=== PATIENT | female | born 1950 | race Caucasian/White ===

== ENCOUNTER 2016-04-27 17:25 | Inpatient (IN) | payer OTHER ==
[~2016-04-27] VITALS: Ht 165.1 cm; Wt 112.5 kg
[~2016-04-27 17:25] MED LIST: ASPIRIN EC325 MG PO; HYDROCODON-ACE1 EAC7 PO; IRON325 M1 PO; MICARDIS40 MG PO; MOTRIN400 MG PO; MUCINEX D ER T1 EACH PO; NEXIUM40 MG PO; SINGULAIR10 MG PO; XOPENEX HF200 INHALA IH
[2016-04-27 18:21] LABS: HEMATOCRIT 38.7 % (36.0-46.0); MCH 28.1 PG (29.0-34.0); MCHC 33.6 G/DL (30.0-36.0); MCV 83.6 FL (83-99); MEAN PLAT.VOLUME 9.9 uM^3 (9.5-12.4); PLATELET COUNT 367 K/uL (156-360); RBC DIS.WIDTH-CV 13.6 % (11.8-14.6); RBC DIS.WIDTH-SD 40.9 % (39-53); RED BLOOD COUNT 4.63 M/uL (3.80-5.20); WHITE BLOOD COUNT 20.2 K/uL (4.1-10.2)
[2016-04-27 18:32] LABS: CHLORIDE 101 mEq/L (99-109); POTASSIUM 3.6 mEq/L (3.7-5.4); SODIUM 139 mEq/L (136-147)
[2016-04-27 18:34] LABS: GLUCOSE 167 mg/dL (70-99)
[2016-04-27 18:35] LABS: ANION GAP 16 MEQ/L (2-14)
[2016-04-27 18:37] LABS: GFR ESTIMATE (CALCULATED) > 59 mL/min/
[2016-04-27 18:38] LABS: UREA NITROGEN (BUN) 16 mg/dL (9-23)
[2016-04-27 18:39] LABS: PROTHROMBIN TIME 10.4 (9.2-11.2); PTT 24.9 (25-32)
[2016-04-27] MEDS ORDERED: BREO ELLIPTA I1 EACH IH (18:47)
[2016-04-27] MEDS ORDERED: DELTASONE20 M1 PO (18:49)
[2016-04-27] MEDS ORDERED: GLUCOPHAGE1000 MG PO (18:49)
[2016-04-27] MEDS ORDERED: HYZAAR 100-11 TABLET PO (18:50)
[2016-04-27] MEDS ORDERED: POLICOSANOL-GA1 EACH PO (18:50)
[2016-04-27] MEDS ORDERED: PROVENTIL,2.5 MG/3 M IH (18:51)
[2016-04-27] MEDS ORDERED: VITAMIN D2000 UNIT PO (18:51)
[2016-04-27] MEDS ORDERED: LOTRISONE15 GM TP (18:52)
[2016-04-27 21:13] LABS: Estimated Average Glucose 163 mg/dL (70-123); HEMOGLOBIN A1c (GLYCOHEMOGLOB) 7.3 % HGB (Below 5.7)
[2016-04-27 21:17] LABS: HDL CHOLESTEROL 43 MG/DL (Desirable>=50); LDL CHOLESTEROL 77 mg/dL (Desirable<100); NON-HDL CHOLESTEROL 120 mg/dL (Desirable<160); SAMPLE HEMOLYSIS CHECK 0; SAMPLE ICTERIC CHECK 0; SAMPLE LIPEMIA CHECK 0; TOTAL CHOLESTEROL 163 mg/dL (Desirable<200); TRIGLYCERIDES 213 MG/DL (Normal: <150)
[2016-04-28 04:00] VITALS: BP 170/83
[2016-04-28 07:35] LABS: HEMATOCRIT 39.6 % (36.0-46.0); MCH 28.4 PG (29.0-34.0); MCHC 32.6 G/DL (30.0-36.0); MEAN PLAT.VOLUME 10.3 uM^3 (9.5-12.4); PLATELET COUNT 314 K/uL (156-360); RBC DIS.WIDTH-CV 13.8 % (11.8-14.6); RBC DIS.WIDTH-SD 43.3 % (39-53); RED BLOOD COUNT 4.55 M/uL (3.80-5.20)
[2016-04-28 07:36] LABS: ALKALINE PHOSPHATASE 76 IU/L (3-129); ANION GAP 11 MEQ/L (2-14); CHLORIDE 102 MEQ/L (99-109); GFR ESTIMATE (CALCULATED) > 59 mL/min/; GLUCOSE 149 mg/dL (70-99); POTASSIUM 3.9 MEQ/L (3.7-5.4); SAMPLE HEMOLYSIS CHECK 0; SAMPLE ICTERIC CHECK 0; SAMPLE LIPEMIA CHECK 0; SODIUM 141 MEQ/L (136-147); TOTAL BILIRUBIN 0.7 MG/DL (0.0-1.0); UREA NITROGEN (BUN) 14 mg/dL (9-23)
[2016-04-28 07:38] LABS: WHITE BLOOD COUNT 13.9 K/uL (4.1-10.2)
[2016-04-28 08:28] LABS: ABS NEUTROPHIL COUNT 9.19; ANISOCYTOSIS OCC; EOSINOPHIL ABS CT 0.42; PLAT.SUFFICIENCY ADEQUATE
[2016-04-28 12:30] VITALS: BP 156/79
[2016-04-28 20:48] VITALS: BP 1140/70; BP 140/70
[2016-04-28 23:29] VITALS: BP 160/70
[2016-04-29 04:00] VITALS: BP 152/90
[2016-04-29 07:04] LABS: HEMATOCRIT 40.3 % (36.0-46.0); MCH 28.3 PG (29.0-34.0); MCHC 32.8 G/DL (30.0-36.0); MCV 86.5 FL (83-99); MEAN PLAT.VOLUME 10.6 uM^3 (9.5-12.4); PLATELET COUNT 324 K/uL (156-360); RBC DIS.WIDTH-CV 13.9 % (11.8-14.6); RBC DIS.WIDTH-SD 43.3 % (39-53); RED BLOOD COUNT 4.66 M/uL (3.80-5.20); WHITE BLOOD COUNT 13.3 K/uL (4.1-10.2)
[2016-04-29 07:37] LABS: ANION GAP 12 MEQ/L (2-14); CHLORIDE 101 MEQ/L (99-109); GFR ESTIMATE (CALCULATED) > 59 mL/min/; GLUCOSE 166 mg/dL (70-99); SAMPLE HEMOLYSIS CHECK 0; SAMPLE ICTERIC CHECK 0; SAMPLE LIPEMIA CHECK 0; SODIUM 141 MEQ/L (136-147); UREA NITROGEN (BUN) 19 mg/dL (9-23)
[2016-04-29 08:29] VITALS: BP 166/98
[2016-04-29] MEDS ORDERED: ATORVASTATIN CA40 MG PO (10:48)
[2016-04-29] MEDS ORDERED: ASPIR-LOW81 MG PO (10:48)
[2016-04-29 12:10] VITALS: BP 162/98
== END 2016-04-29 13:25 | disposition home or self-care (01) | DRG 56 ==
LOC: EME 17:25 → EDOF 20:19 → 5SOUTH 20:19
PROVIDERS: Emergency Medicine; Hospitalist
DX: I69.320 Aphasia following cerebral infarction (principal); I63.9 Cerebral infarction, unspecified; Z68.41 Body mass index [BMI] 40.0-44.9, adult; I10 Essential (primary) hypertension; E11.9 Type 2 diabetes mellitus without complications; D72.828 Other elevated white blood cell count; G47.30 Sleep apnea, unspecified; K21.9 Gastro-esophageal reflux disease without esophagitis; E66.9 Obesity, unspecified; J45.909 Unspecified asthma, uncomplicated; E78.5 Hyperlipidemia, unspecified; Z96.653 Presence of artificial knee joint, bilateral
CPT/HCPCS: 36415; 71010; 80048; 80053; 80061; 82565; 83036; 84520; 85007; 85027; 85610; 85730; 92523 GN; 92610 GN; 93880; 94640; 94640 76; 99202; 99281; 99285; J1644

== ENCOUNTER 2016-10-07 18:54 | Emergency (ER) | payer OTHER ==
[~2016-10-07] VITALS: Ht 165.1 cm; Wt 113.8 kg
[~2016-10-07 18:54] MED LIST changes: +ASPIR-LOW81 MG PO; +ATORVASTATIN CA40 MG PO; +BREO ELLIPTA I1 EACH IH; +DELTASONE20 M1 PO; +GLUCOPHAGE1000 MG PO; +HYZAAR 100-11 TABLET PO; +LOTRISONE15 GM TP; +POLICOSANOL-GA1 EACH PO; +PROVENTIL,2.5 MG/3 M IH; +VITAMIN D2000 UNIT PO
[2016-10-07 19:35] VITALS: BP 118/116
[2016-10-07 20:08] LABS: HEMATOCRIT 37.4 % (36.0-46.0); MCH 27.2 PG (29.0-34.0); MCHC 31.6 G/DL (30.0-36.0); MCV 86.2 FL (83-99); MEAN PLAT.VOLUME 9.9 uM^3 (9.5-12.4); PLATELET COUNT 345 K/uL (156-360); RBC DIS.WIDTH-SD 43.9 % (39-53); RED BLOOD COUNT 4.34 M/uL (3.80-5.20); WHITE BLOOD COUNT 14.6 K/uL (4.1-10.2)
[2016-10-07 20:16] LABS: CHLORIDE 104 mEq/L (99-109); POTASSIUM 3.9 mEq/L (3.7-5.4); SODIUM 143 mEq/L (136-147)
[2016-10-07 20:18] LABS: GLUCOSE 174 mg/dL (70-99)
[2016-10-07 20:19] LABS: ANION GAP 11 MEQ/L (2-14)
[2016-10-07 20:22] LABS: GFR ESTIMATE (CALCULATED) > 59 mL/min/
[2016-10-07 20:23] LABS: UREA NITROGEN (BUN) 13 mg/dL (9-23)
[2016-10-07 22:07] LABS: TROP-I INTERPRETATION NEGATIVE; TROPONIN-I < 0.01 ng/mL (0.0-0.30)
== END 2016-10-07 23:59 | disposition home or self-care (01) ==
LOC: EME 18:54
DX: J81.0 Acute pulmonary edema (principal); R60.0 Localized edema; R06.02 Shortness of breath; J45.909 Unspecified asthma, uncomplicated; I10 Essential (primary) hypertension; K21.9 Gastro-esophageal reflux disease without esophagitis
CPT/HCPCS: 71020; 80048; 84484; 85027; 93005; 99281; 99284; J1940

== ENCOUNTER 2016-10-17 12:13 | Inpatient (IN) | payer OTHER ==
[~2016-10-17] VITALS: Ht 165.1 cm; Wt 108.9 kg
[2016-10-17 12:39] LABS: HEMATOCRIT 37.8 % (36.0-46.0); MCH 26.8 PG (29.0-34.0); MCHC 31.5 G/DL (30.0-36.0); MCV 85.1 FL (83-99); MEAN PLAT.VOLUME 9.7 uM^3 (9.5-12.4); PLATELET COUNT 331 K/uL (156-360); RBC DIS.WIDTH-CV 13.6 % (11.8-14.6); RBC DIS.WIDTH-SD 41.9 % (39-53); RED BLOOD COUNT 4.44 M/uL (3.80-5.20); WHITE BLOOD COUNT 13.6 K/uL (4.1-10.2)
[2016-10-17 12:50] LABS: CHLORIDE 104 mEq/L (99-109); POTASSIUM 3.8 mEq/L (3.7-5.4); SODIUM 142 mEq/L (136-147)
[2016-10-17 12:51] LABS: GLUCOSE 159 mg/dL (70-99)
[2016-10-17 12:55] LABS: GFR ESTIMATE (CALCULATED) > 59 mL/min/
[2016-10-17 12:56] LABS: UREA NITROGEN (BUN) 18 mg/dL (9-23)
[2016-10-17 13:19] LABS: TROP-I INTERPRETATION NEGATIVE; TROPONIN-I 0.02 ng/mL (0.0-0.30)
[2016-10-17] MEDS ORDERED: LO-DOSE ASPIRIN81 M2 PO (17:24)
[2016-10-17 19:57] LABS: D-DIMER ELISA 0.93 mg/L FEU (< 0.57)
[2016-10-17 20:04] LABS: TROP-I INTERPRETATION NEGATIVE; TROPONIN-I 0.01 ng/mL (0.0-0.30)
[2016-10-17 20:31] VITALS: BP 159/91
[2016-10-17 22:46] LABS: POINT-OF-CARE METER ID UU14162513
[2016-10-18 00:08] VITALS: BP 143/76
[2016-10-18 00:16] LABS: ADD MIUA? YES; BILIRUBIN NEGATIVE; BLOOD NEGATIVE; COLOR STRAW ((YELLOW)); GLUCOSE (STRIP) NEGATIVE; KETONES NEGATIVE; LEUKOCYTES MODERATE; NITRITE NEGATIVE; PROTEIN (STRIP) NEGATIVE; UROBILINOGEN 0.2 MG/DL (0.2-1.0)
[2016-10-18 00:22] LABS: BACTERIA NONE SEEN /HPF; EPITHELIAL CELLS RARE /HPF; MUCUS NONE SEEN /LPF; RED BLOOD CELLS 20-30 /HPF (0-5); UCUL ADDED? NO; WHITE BLOOD CELLS 0-5 /HPF (0-5)
[2016-10-18 01:17] LABS: TROP-I INTERPRETATION NEGATIVE; TROPONIN-I 0.01 ng/mL (0.0-0.30)
[2016-10-18 05:25] LABS: HEMATOCRIT 37.8 % (36.0-46.0); MCH 27.4 PG (29.0-34.0); MCV 85.7 FL (83-99); MEAN PLAT.VOLUME 10.2 uM^3 (9.5-12.4); PLATELET COUNT 317 K/uL (156-360); RBC DIS.WIDTH-CV 13.8 % (11.8-14.6); RBC DIS.WIDTH-SD 43.1 % (39-53); RED BLOOD COUNT 4.41 M/uL (3.80-5.20); WHITE BLOOD COUNT 14.2 K/uL (4.1-10.2)
[2016-10-18 05:51] LABS: ANION GAP 11 MEQ/L (2-14); CHLORIDE 98 MEQ/L (99-109); GFR ESTIMATE (CALCULATED) > 59 mL/min/; GLUCOSE 145 mg/dL (70-99); POTASSIUM 3.6 MEQ/L (3.7-5.4); SAMPLE HEMOLYSIS CHECK 0; SAMPLE ICTERIC CHECK 0; SAMPLE LIPEMIA CHECK 0; SODIUM 143 MEQ/L (136-147); UREA NITROGEN (BUN) 20 mg/dL (9-23)
[2016-10-18 08:07] LABS: POINT-OF-CARE METER ID UU14162513
[2016-10-18 11:28] VITALS: BP 122/66
[2016-10-18 12:36] VITALS: BP 160/76
[2016-10-18 16:15] VITALS: BP 162/84
[2016-10-18 16:38] LABS: POINT-OF-CARE METER ID UU14162508
[2016-10-18 19:45] VITALS: BP 140/73
[2016-10-18 23:07] VITALS: BP 138/76
[2016-10-19 03:07] VITALS: BP 140/72
[2016-10-19 06:35] LABS: ANION GAP 10 MEQ/L (2-14); CHLORIDE 97 MEQ/L (99-109); GFR ESTIMATE (CALCULATED) > 59 mL/min/; GLUCOSE 126 mg/dL (70-99); POTASSIUM 3.5 MEQ/L (3.7-5.4); SAMPLE HEMOLYSIS CHECK 0; SAMPLE ICTERIC CHECK 0; SAMPLE LIPEMIA CHECK 0; SODIUM 141 MEQ/L (136-147); UREA NITROGEN (BUN) 21 mg/dL (9-23)
[2016-10-19 07:00] VITALS: BP 115/57
[2016-10-19 07:43] LABS: EOSINOPHIL (%) 0.4 % (0-5); EOSINOPHIL COUNT 0.1 K/uL (0-0.3); HEMATOCRIT 38.4 % (36.0-46.0); IMMATURE GRANULOCYTE (%) 0.4 % (0.0-0.7); IMMATURE GRANULOCYTE COUNT 0.1 K/uL; INSTRUMENT ABS NEUTROPHIL CT 12.3 K/uL; LYMPHOCYTE COUNT 1.9 K/uL (1.0-2.8); MCH 27.4 PG (29.0-34.0); MCHC 32.6 G/DL (30.0-36.0); MCV 84.2 FL (83-99); MEAN PLAT.VOLUME 10.6 uM^3 (9.5-12.4); MONOCYTE (%) 7.9 % (3-12); MONOCYTE COUNT 1.2 K/uL (0-0.8); NEUTROPHIL (%) 78.8 % (45-76); NEUTROPHIL COUNT 12.3 K/uL (1.8-6.4); PLATELET COUNT 366 K/uL (156-360); RBC DIS.WIDTH-CV 13.5 % (11.8-14.6); RBC DIS.WIDTH-SD 41.5 % (39-53); RED BLOOD COUNT 4.56 M/uL (3.80-5.20); WHITE BLOOD COUNT 15.6 K/uL (4.1-10.2)
[2016-10-19 11:20] VITALS: BP 131/80
[2016-10-19 15:10] VITALS: BP 142/82
[2016-10-19 20:00] VITALS: BP 142/71
[2016-10-20 01:43] VITALS: BP 111/59
[2016-10-20 04:46] VITALS: BP 123/61
[2016-10-20 06:33] LABS: POINT-OF-CARE METER ID UU14162508
[2016-10-20 07:01] LABS: BASOPHIL COUNT 0.1 K/uL (0-0.1); EOSINOPHIL (%) 1.1 % (0-5); EOSINOPHIL COUNT 0.2 K/uL (0-0.3); HEMATOCRIT 38.6 % (36.0-46.0); IMMATURE GRANULOCYTE (%) 0.7 % (0.0-0.7); IMMATURE GRANULOCYTE COUNT 0.1 K/uL; LYMPHOCYTE COUNT 3.2 K/uL (1.0-2.8); MCH 27.4 PG (29.0-34.0); MCHC 32.4 G/DL (30.0-36.0); MCV 84.6 FL (83-99); MEAN PLAT.VOLUME 10.7 uM^3 (9.5-12.4); MONOCYTE (%) 7.8 % (3-12); MONOCYTE COUNT 1.2 K/uL (0-0.8); NEUTROPHIL (%) 69.7 % (45-76); PLATELET COUNT 364 K/uL (156-360); RBC DIS.WIDTH-CV 13.6 % (11.8-14.6); RBC DIS.WIDTH-SD 42.2 % (39-53); RED BLOOD COUNT 4.56 M/uL (3.80-5.20); WHITE BLOOD COUNT 15.8 K/uL (4.1-10.2)
[2016-10-20 07:25] VITALS: BP 136/95
[2016-10-20 07:25] LABS: ANION GAP 12 MEQ/L (2-14); CHLORIDE 98 MEQ/L (99-109); GFR ESTIMATE (CALCULATED) > 59 mL/min/; GLUCOSE 125 mg/dL (70-99); MAGNESIUM 1.7 mg/dl (1.3-2.7); POTASSIUM 3.9 MEQ/L (3.7-5.4); SAMPLE HEMOLYSIS CHECK 0; SAMPLE ICTERIC CHECK 0; SAMPLE LIPEMIA CHECK 0; SODIUM 142 MEQ/L (136-147)
[2016-10-20 07:28] LABS: UREA NITROGEN (BUN) 32 mg/dL (9-23)
[2016-10-20 11:33] VITALS: BP 120/56
[2016-10-20 11:43] LABS: POINT-OF-CARE METER ID UU14162508
[2016-10-20] MEDS ORDERED: LASIX40 MG PO (12:50)
[2016-10-20] MEDS ORDERED: DOXYCYCLINE HY100 M3 PO (12:50)
[2016-10-20] MEDS ORDERED: METOPROLOL SUCC25 MG PO (12:50)
[2016-10-20] MEDS ORDERED: PREDNISONE20 MG PO (12:50)
[2016-10-20] MEDS ORDERED: LOSARTAN POTAS100 MG PO (12:50)
== END 2016-10-20 15:16 | disposition home or self-care (01) | DRG 291 ==
LOC: EME 12:13 → EDOF 19:10 → 5WEST 19:10 → 2EAST 10-18 10:13 → 5WEST 10-18 10:13 → 2EAST 10-18 12:30
PROVIDERS: Hospitalist; Internal Medicine; Nurse Practitioner Family
DX: I11.0 Hypertensive heart disease with heart failure (principal); I50.33 Acute on chronic diastolic (congestive) heart failure; J15.4 Pneumonia due to other streptococci; J98.11 Atelectasis; Z68.41 Body mass index [BMI] 40.0-44.9, adult; J90 Pleural effusion, not elsewhere classified; J45.40 Moderate persistent asthma, uncomplicated; K21.9 Gastro-esophageal reflux disease without esophagitis; G47.33 Obstructive sleep apnea (adult) (pediatric); E66.9 Obesity, unspecified; E11.9 Type 2 diabetes mellitus without complications; E78.5 Hyperlipidemia, unspecified; J40 Bronchitis, not specified as acute or chronic; E87.6 Hypokalemia; K80.20 Calculus of gallbladder without cholecystitis without obstruction; R09.02 Hypoxemia; Z77.22 Contact with and (suspected) exposure to environmental tobacco smoke (acute) (chronic); Z79.84 Long term (current) use of oral hypoglycemic drugs; Z79.82 Long term (current) use of aspirin; Z82.3 Family history of stroke; Z82.49 Family history of ischemic heart disease and other diseases of the circulatory system; Z86.73 Personal history of transient ischemic attack (TIA), and cerebral infarction without residual deficits; Z88.1 Allergy status to other antibiotic agents; J98.4 Other disorders of lung; Z88.0 Allergy status to penicillin; Z88.2 Allergy status to sulfonamides
CPT/HCPCS: 71020; 71275; 80048; 81003; 82948; 83735; 83880; 84484; 85025; 85027; 85379; 93005; 94760; 94799; 99202; 99281; 99285; G0378; J1644; J1815; J1940; J7512